=== PATIENT | male | born 2000 | race Caucasian/White ===

== ENCOUNTER 2022-07-20 15:11 | Emergency (ER) | payer OTHER ==
[2022-07-20 15:19] VITALS: TEMP 98.9; BMI 20.5
[2022-07-20] MEDS ORDERED: ONDANSETRON 4 MG/2 ML VIAL IVPUSH ONE (15:36)
[2022-07-20] MEDS ORDERED: SODIUM CHLORIDE 0.9% 500 ML INFUS.BAG IV ONE ×2 (15:36→17:31)
[2022-07-20] MEDS ORDERED: ACETAMINOPHEN 1000 MG/100 ML BAG IVPB ONE (15:36)
[2022-07-20] MEDS ORDERED: ONDANSETRON 4 MG/2 ML VIAL ONE (16:22)
[2022-07-20] MEDS ORDERED: ACETAMINOPHEN INJECTION 100 ML IVPB ONE (16:22)
[2022-07-20 16:43] LABS: BASO % 0.1 % (0-2.0); HEMATOCRIT 41.6 % (35.4-49); HEMOGLOBIN 13.9 GM/dL (11.7-16.9); LYMPH % 4.5 % (8-40); MCHC 33.4 g/dl (32.0-35.9); MEAN CELL VOLUME 83.8 fl (80-96); MEAN PLT VOLUME 8.4 fl (7.5-11.1); MONO % 6.2 % (3.8-10.2); NEUT % 89.2 % (42.8-82.8); PLATELET COUNT 191 10^3/uL (134-434); RBC 4.97 M/mm3 (4.00-5.60); RDW 13.8 % (11.9-15.9); WHITE BLOOD COUNT 9.7 K/mm3 (4.0-10.0)
[2022-07-20 17:20] LABS: ALBUMIN 3.6 g/dl (3.4-5.0); BLOOD UREA NITROGEN 16.4 mg/dL (7-18); CALCIUM 8.6 mg/dL (8.5-10.1)
[2022-07-20 17:23] LABS: CREATININE 1.5 mg/dL (0.55-1.3)
[2022-07-20 17:24] LABS: BILIRUBIN,TOTAL 0.7 mg/dL (0.2-1); TOT PROT 6.8 g/dl (6.4-8.2)
[2022-07-20 17:40] LABS: ANISOCYTOSIS 0; MACROCYTOSIS 0; OVALOCYTE 1+
[2022-07-20] MEDS ORDERED: AMOX TR/POT CLAV 875MG/125MG TABLETS (FP) PO ONE (18:34)
[2022-07-20] MEDS ORDERED: AMOX TR/POT CLAV 875MG/125MG TABLETS (FP) ONE (18:42)
[2022-07-20 19:01] VITALS: BP 100/80; PULSE 87; RESP 18
== END 2022-07-20 19:01 | disposition home or self-care (01) ==
LOC: JER 15:11
PROC: 3E033GC Introduction of Other Therapeutic Substance into Peripheral Vein, Percutaneous Approach (ICD-10-PCS; principal; 2022-07-20)
DX: K52.9 Noninfective gastroenteritis and colitis, unspecified (principal); R50.9 Fever, unspecified
CPT/HCPCS: 0241U-QW; 36415; 74177-TC; 80053; 83690; 85025; 99285-25; Q9967

== ENCOUNTER 2023-10-01 12:49 | Emergency (ER) | payer OTHER ==
[2023-10-01 12:53] VITALS: BP 117/75; PULSE 64; RESP 18; TEMP 97.6; BMI 19.8
[2023-10-01] MEDS ORDERED: predniSONE 20 MG TABLET (UD) PO ONE (15:14)
[2023-10-01] MEDS ORDERED: predniSONE 20 MG TABLET (UD) ONE (15:39)
== END 2023-10-01 15:41 | disposition home or self-care (01) ==
LOC: JER 12:49 → JERFT 12:49
DX: R21 Rash and other nonspecific skin eruption (principal); L29.9 Pruritus, unspecified; H02.841 Edema of right upper eyelid; R09.89 Other specified symptoms and signs involving the circulatory and respiratory systems; T78.40XA Allergy, unspecified, initial encounter; J34.89 Other specified disorders of nose and nasal sinuses
CPT/HCPCS: 99283-25